=== PATIENT | female | born 1995 | race Caucasian/White ===

== ENCOUNTER 2016-07-20 15:58 | Emergency (ER) | payer MEDICAID ==
[2016-07-20] MEDS ORDERED: SODIUM CHLORIDE 0.9% 1,000 ML IV ONE (16:35)
[2016-07-20] MEDS ORDERED: ONDANSETRON 4 MG/2 ML VIAL IVP STA (16:36)
[2016-07-20] MEDS ORDERED: ONDANSETRON 4 MG/2 ML VIAL ONE (16:43)
== END 2016-07-20 19:08 | disposition home or self-care (01) ==
DX: B34.9 Viral infection, unspecified (principal); E86.0 Dehydration; F17.200 Nicotine dependence, unspecified, uncomplicated

== ENCOUNTER 2016-07-23 21:32 | Emergency (ER) | payer MEDICAID ==
[2016-07-23] MEDS ORDERED: BENZONATATE 100 MG CAPSULE PO STA (22:59)
[2016-07-23] MEDS ORDERED: DEXAMETHASONE 10 MG/ML VIAL PO STA (22:59)
[2016-07-23] MEDS ORDERED: LIDOCAINE VISCOUS 2% 15 ML UDC MM STA ×2 (23:00→23:36)
[2016-07-23] MEDS ORDERED: BENZONATATE 100 MG CAPSULE PO ONE (23:16)
[2016-07-23] MEDS ORDERED: LIDOCAINE VISCOUS 2% 15 ML UDC MM ONE ×2 (23:16→23:38)
[2016-07-23] MEDS ORDERED: DEXAMETHASONE 10 MG/ML VIAL ONE (23:16)
== END 2016-07-23 23:57 | disposition home or self-care (01) ==
DX: J06.9 Acute upper respiratory infection, unspecified (principal); B97.89 Other viral agents as the cause of diseases classified elsewhere; F17.200 Nicotine dependence, unspecified, uncomplicated
CPT/HCPCS: 99283; A9270

== ENCOUNTER 2017-03-12 23:39 | Emergency (ER) | payer MEDICAID ==
--- NOTE | 2017-03-13 01:57 | ED Physician Documentation ---
PD HPI HEADACHE - Stated complaint Stated Complaint: MIGRAINE - Chief complaint Chief Complaint: Neuro - History obtained from History obtained from: Patient - History of Present Illness Timing - onset: How many days ago (4) Timing - duration: Days Timing - details: Gradual onset, Still present, Constant, Waxing and waning Pain level now: 7 Worst headache ever?: No: Worst headache ever? Location: Front, Right, Left Quality: Throbbing Associated symptoms: Nausea. No: Fever, Stiff neck, Vomiting, Weakness, Numbness, Vision changes Improved by: Rest, Dark room, Quiet Worsened by: No: Light, Noise Similar symptoms before: Diagnosis (migraine headache) Recently seen: Not recently seen Review of Systems Constitutional: denies: Fever, Chills, Sweats Eyes: reports: Photophobia. denies: Loss of vision, Decreased vision GI: reports: Nausea. denies: Abdominal Pain, Vomiting Neurologic: reports: Headache. 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 : None HEENT: None Psych: Depression, Anxiety Musculoskeletal: None Derm: None - Past Surgical History Past Surgical History: No - Present Medications Home Medications: Ambulatory Orders Medication Instructions Recorded Confirmed Ondansetron Odt [Zofran Odt] 4 mg TL Q6H PRN #14 tablet 03/13/17 Sumatriptan Succinate [Imitrex] 50 mg PO ONCE PRN #20 tablet 03/13/17 - Allergies Allergies/Adverse Reactions: Allergies Allergy/AdvReac Type Severity Reaction Status Date / Time No Known Drug Allergies Allergy Verified 07/23/16 21:58 - Social History Does the pt smoke?: Yes Smoking Status: Current every day smoker Does the pt drink ETOH?: No Does the pt have substance abuse?: No - Immunizations Immunizations are current?: Yes - POLST Patient has POLST: No PD ED PE NORMAL - Vitals Vital signs reviewed: Yes - General General: Alert and oriented X 3, No acute distress, Well developed/nourished - HEENT HEENT: PERRL, EOMI, Other (mild photophobia) - Neck Neck: Supple, no meningeal sign - Cardiac Cardiac: RRR, No murmur - Respiratory Respiratory: No respiratory distress, Clear bilaterally - Neuro Neuro: Alert and oriented X 3, conference planner 2-12 intact, No motor deficit, No sensory deficit, Normal speech Results - Vitals Vitals: Oxygen O2 Source Room air PD MEDICAL DECISION MAKING - ED course Complexity details: reviewed old records, considered differential, d/w patient Departure - Departure Disposition: Home, Self Care Clinical Impression: Migraine Condition: Good Instructions: ED Headache Migraine Prescriptions: Ondansetron Odt [Zofran Odt] 4 mg TL Q6H PRN #14 tablet PRN Reason: Nausea / Vomiting Sumatriptan Succinate [Imitrex] 50 mg PO ONCE PRN #20 tablet PRN Reason: Headache Discharge Date/Time: 03/13/17 02:28
[2017-03-13] MEDS ORDERED: SUMAtriptan 6 MG/0.5 ML VIAL SUBQ STA (02:12)
[2017-03-13] MEDS ORDERED: ONDANSETRON ODT 4 MG TABLET ONE (02:21)
[2017-03-13] MEDS ORDERED: SUMAtriptan 6 MG/0.5 ML VIAL SUBQ ONE (02:21)
[2017-03-13] MEDS: ONDANSETRON ODT 4 MG TABLET TL STA (02:22)
[2017-03-13 02:29] VITALS: BP 121/87
== END 2017-03-13 02:28 | disposition home or self-care (01) ==
LOC: ED 23:39
DX: G43.909 Migraine, unspecified, not intractable, without status migrainosus (principal); F17.200 Nicotine dependence, unspecified, uncomplicated
CPT/HCPCS: 96372; 99283; Q0162

== ENCOUNTER 2018-05-25 14:16 | Emergency (ER) | payer MEDICAID ==
[2018-05-25 14:25] VITALS: BP 144/101
[2018-05-25] MEDS ORDERED: HYDROcod/ACETAM 5/325 MG TABLET PO STA (14:47)
[2018-05-25] MEDS ORDERED: CLINDAMYCIN 150 MG CAPSULE PO STA (14:47)
--- NOTE | 2018-05-25 14:49 | ED Physician Documentation ---
PD HPI HEENT - Stated complaint Stated Complaint: JAW PX - Chief complaint Chief Complaint: Heent - History obtained from History obtained from: Patient - History of Present Illness Timing - onset: Other (3 days of pain from the left jaw that is worse of the last 2 days. Worse with eating and talking. She is been taking Motrin and Tylenol with some but incomplete relief. No facial swelling or fevers. No URI symptoms. 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 : None HEENT: None Psych: Depression, Anxiety Musculoskeletal: None Derm: None - Past Surgical History Past Surgical History: No - Present Medications Home Medications: Ambulatory Orders Medication Instructions Recorded Confirmed Ondansetron Odt [Zofran Odt] 4 mg TL Q6H PRN #14 tablet 03/13/17 Sumatriptan Succinate [Imitrex] 50 mg PO ONCE PRN #20 tablet 03/13/17 Clindamycin HCl [Clindamycin 300MG 300 mg PO Q6H #40 capsule 05/25/18 CAP] FLUoxetine [PROzac] 05/25/18 05/25/18 Hydrocodone/Acetaminophen 1 - 2 each PO Q6H PRN #14 tablet 05/25/18 [Hydrocodon-Acetaminophen 5-325] Prazosin [Minipress] 05/25/18 - Allergies Allergies/Adverse Reactions: Allergies Allergy/AdvReac Type Severity Reaction Status Date / Time sulfamethoxazole Allergy Rash Verified 05/25/18 14:26 [From Bactrim] trimethoprim [From Bactrim] Allergy Rash Verified 05/25/18 14:26 - Social History Does the pt smoke?: Yes Smoking Status: Current every day smoker Does the pt drink ETOH?: No Does the pt have substance abuse?: No - Immunizations Immunizations are current?: Yes - POLST Patient has POLST: No PD ED PE NORMAL - Vitals Vital signs reviewed: Yes - General General: Alert and oriented X 3, No acute distress - HEENT HEENT: Other (There is a large tender cavity in the last mandibular molar on the left without trismus or sublingual edema. She is tender overlying that on the cheek there is no facial swelling. No tenderness of the TMJ.) - Neck Neck: Supple, no meningeal sign, No bony TTP, No adenopathy - Neuro Neuro: Alert and oriented X 3, Normal speech Results - Vitals Vitals: Vital Signs - 24 hr 05/25/18 14:23 Temperature 36.1 C L Heart Rate 80 Respiratory 18 Rate Blood Pressure 144/101 H O2 Saturation 98 Oxygen O2 Source Room air Departure - Departure Disposition: 01 Home, Self Care Clinical Impression: Pain due to dental caries Condition: Good Record reviewed to determine appropriate education?: Yes Instructions: ED Tooth Pain Prescriptions: Clindamycin HCl [Clindamycin 300MG CAP] 300 mg PO Q6H #40 capsule Hydrocodone/Acetaminophen [Hydrocodon-Acetaminophen 5-325] 1 - 2 each PO Q6H PRN #14 tablet PRN Reason: pain Comments: It is very important that you follow-up with a dentist. When it comes to dental problems like yours, the emergency department can only offer a short-term solution to your long-term problem. A couple of low cost options for dental care include: [facility] in [place], calls [phone] for an appointment Or [facility] in [place], call [phone] for an appointment. Your blood pressure was elevated today on check into the emergency department. This does not mean that you have hypertension, it is a common phenomenon to come to the emergency department and have elevated blood pressure. I recommend that you see your primary care physician within the week to have it rechecked when you are feeling better. Do not drink or drive while taking narcotic pain medication. Note that many narcotic pain relievers also contain Tylenol/acetaminophen. Please ensure that your total dose of acetaminophen from all sources does not exceed 3 g (3000 mg) per day. You may get constipated while on this medication. Take a stool softener such as Colace twice a day while you are on it. Also add an upgk-hth-[id number] laxative such as senna or MiraLAX on any day that you do not have a bowel movement. If you received a narcotic pain medication or sedative while in the emergency department, do not drive for the next 24 hours.
== END 2018-05-25 14:53 | disposition home or self-care (01) ==
LOC: ED 14:16
DX: K02.9 Dental caries, unspecified (principal); F17.200 Nicotine dependence, unspecified, uncomplicated; R03.0 Elevated blood-pressure reading, without diagnosis of hypertension
CPT/HCPCS: 99283; 99284

== ENCOUNTER 2018-10-20 18:29 | Emergency (ER) | payer MEDICAID ==
[2018-10-20 18:37] VITALS: BP 137/81
[2018-10-20] MEDS ORDERED: HYDROcod/ACETAM 5/325 MG TABLET PO STA (18:48)
[2018-10-20] MEDS ORDERED: IBUPROFEN 800 MG TABLET PO STA (18:48)
--- NOTE | 2018-10-20 18:50 | ED Physician Documentation ---
PD HPI LOWER EXT INJURY - Stated complaint Stated Complaint: R ANKLE INJ - Chief complaint Chief Complaint: Ext Problem - History obtained from History obtained from: Patient - History of Present Illness PD HPI LOW EXT INJURY LOCATION: Right (She tripped and injured her right ankle and foot. She can walk and bear weight but pain is moderate to severe. No other injuries. 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 : None HEENT: None Psych: Depression, Anxiety Musculoskeletal: None Derm: None - Past Surgical History Past Surgical History: No - Present Medications Home Medications: Ambulatory Orders Medication Instructions Recorded Confirmed RX: Ondansetron Odt [Zofran Odt] 4 mg TL Q6H PRN #14 tablet 03/13/17 Sumatriptan Succinate [Imitrex] 50 mg PO ONCE PRN #20 tablet 03/13/17 FLUoxetine [PROzac] 05/25/18 05/25/18 Hydrocodone/Acetaminophen 1 - 2 each PO Q6H PRN #14 tablet 05/25/18 [Hydrocodon-Acetaminophen 5-325] RX: Clindamycin HCl [Clindamycin 300 mg PO Q6H #40 capsule 05/25/18 300MG CAP] RX: Prazosin [Minipress] 05/25/18 Hydrocodone/Acetaminophen 1 - 2 each PO Q6H PRN #7 tablet 10/20/18 [Hydrocodon-Acetaminophen 5-325] Ibuprofen [Motrin] 800 mg PO Q8H PRN #30 tablet 10/20/18 - Allergies Allergies/Adverse Reactions: Allergies Allergy/AdvReac Type Severity Reaction Status Date / Time sulfamethoxazole Allergy Rash Verified 10/20/18 18:37 [From Bactrim] trimethoprim [From Bactrim] Allergy Rash Verified 10/20/18 18:37 - Social History Does the pt smoke?: Yes Smoking Status: Current every day smoker Does the pt drink ETOH?: No Does the pt have substance abuse?: No - Immunizations Immunizations are current?: Yes - POLST Patient has POLST: No PD ED PE NORMAL - Vitals Vital signs reviewed: Yes - General General: Alert and oriented X 3, No acute distress - Extremities Extremities: No calf tenderness / cord, Other (No tenderness over the proximal fibula on the right. She is mildly tender over both malleoli but more so the ATFL and less so the fifth proximal metatarsal on the right. In fact she is kind of tender all over. There is no deformity.) - Neuro Neuro: Alert and oriented X 3, Normal speech Results - Vitals Vitals: Vital Signs - 24 hr 10/20/18 18:35 Temperature 36.6 C Heart Rate 99 Respiratory 18 Rate Blood Pressure 137/81 H O2 Saturation 98 Oxygen O2 Source Room air - Rads (name of study) XRs R ankle and foot Radiology: EMP read contemporaneously (normal) Departure - Departure Disposition: 01 Home, Self Care Clinical Impression: Right ankle sprain, Right foot sprain Condition: Good Record reviewed to determine appropriate education?: Yes Instructions: ED Sprain Ankle W X Ray Prescriptions: Hydrocodone/Acetaminophen [Hydrocodon-Acetaminophen 5-325] 1 - 2 each PO Q6H PRN #7 tablet PRN Reason: pain Ibuprofen [Motrin] 800 mg PO Q8H PRN #30 tablet PRN Reason: PAIN &/OR FEVER Comments: Recheck with your doctor in a week if not better, return for new or worsening symptoms. Discharge Date/Time: 10/20/18 19:29
--- NOTE | 2018-10-20 19:31 | XRAY Report ---
Reason: ankle./foot inj Procedure Date: 10/20/2018 Accession Number: [id number] / [id number] Procedure: XR - Ankle 3 View RT CPT Code: FULL RESULT: EXAM: RIGHT ANKLE RADIOGRAPHY EXAM DATE: 10/20/2018 07:07 PM. CLINICAL HISTORY: Fall. Injury. Pain. COMPARISON: None. TECHNIQUE: 3 views. FINDINGS: Bones: Normal. No fractures or bone lesions. Joints: Normal. No effusion. No subluxations. The ankle mortise is normally aligned. Soft Tissues: Unremarkable. IMPRESSION: Normal ankle radiography. [facility]
--- NOTE | 2018-10-20 19:32 | XRAY Report ---
Reason: ankle./foot inj Procedure Date: 10/20/2018 Accession Number: [id number] / [id number] Procedure: XR - Foot 3 View RT CPT Code: FULL RESULT: EXAM: RIGHT FOOT RADIOGRAPHY EXAM DATE: 10/20/2018 07:07 PM. CLINICAL HISTORY: Fall. Injury. Pain. COMPARISON: None. TECHNIQUE: 3 views. FINDINGS: Bones: Normal. No fractures or bone lesions. Joints: Normal. No subluxations. Soft Tissues: Unremarkable. IMPRESSION: Normal foot radiography. [facility]
== END 2018-10-20 19:29 | disposition home or self-care (01) ==
LOC: ED 18:29
DX: S93.401A Sprain of unspecified ligament of right ankle, initial encounter (principal); S93.601A Unspecified sprain of right foot, initial encounter; W01.0XXA Fall on same level from slipping, tripping and stumbling without subsequent striking against object, initial encounter; F17.200 Nicotine dependence, unspecified, uncomplicated
CPT/HCPCS: 73610; 73630; 99283; A9270

== ENCOUNTER 2018-11-26 18:54 | Emergency (ER) | payer MEDICAID ==
[2018-11-26 19:09] VITALS: BP 126/89
[2018-11-26] MEDS ORDERED: LIDOCAINE VISCOUS 2% 15 ML UDC MM STA (19:20)
[2018-11-26] MEDS ORDERED: HYDROcod/ACET 5/325 Prepack 4 PO STA (19:20)
[2018-11-26] MEDS ORDERED: CLINDAMYCIN 150 MG CAPSULE PO STA (19:20)
--- NOTE | 2018-11-26 19:22 | ED Physician Documentation ---
PD HPI HEENT FB - Chief complaint Chief Complaint: Heent - History obtained from History obtained from: Patient - History of Present Illness Timing - onset: Today (23-year-old woman has pain from a cavity for the last week on the right mandible. 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 HEENT: None Psych: Depression, Anxiety, Panic attacks, Post traumatic stress disorder Musculoskeletal: None Derm: None - Past Surgical History Past Surgical History: No - Present Medications Home Medications: Ambulatory Orders Medication Instructions Recorded Confirmed Ondansetron Odt [Zofran Odt] 4 mg TL Q6H PRN #14 tablet 03/13/17 Sumatriptan Succinate [Imitrex] 50 mg PO ONCE PRN #20 tablet 03/13/17 Clindamycin HCl [Clindamycin 300MG 300 mg PO Q6H #40 capsule 05/25/18 CAP] FLUoxetine [PROzac] 05/25/18 05/25/18 Hydrocodone/Acetaminophen 1 - 2 each PO Q6H PRN #14 tablet 05/25/18 [Hydrocodon-Acetaminophen 5-325] Prazosin [Minipress] 05/25/18 Hydrocodone/Acetaminophen 1 - 2 each PO Q6H PRN #7 tablet 10/20/18 [Hydrocodon-Acetaminophen 5-325] Ibuprofen [Motrin] 800 mg PO Q8H PRN #30 tablet 10/20/18 Clindamycin HCl [Clindamycin 300MG 300 mg PO Q6H #40 capsule 11/26/18 CAP] Hydrocodone/Acetaminophen 1 - 2 each PO Q6H PRN #14 tablet 11/26/18 [Hydrocodon-Acetaminophen 5-325] - Allergies Allergies/Adverse Reactions: Allergies Allergy/AdvReac Type Severity Reaction Status Date / Time sulfamethoxazole Allergy Rash Verified 10/20/18 18:37 [From Bactrim] trimethoprim [From Bactrim] Allergy Rash Verified 10/20/18 18:37 - Social History Does the pt smoke?: Yes Smoking Status: Current every day smoker Does the pt drink ETOH?: No Does the pt have substance abuse?: No - Immunizations Immunizations are current?: Yes - POLST Patient has POLST: No PD ED PE NORMAL - Vitals Vital signs reviewed: Yes - General General: Alert and oriented X 3, No acute distress - HEENT HEENT: Other (She has a lot of cavities. The tooth in question is a right mandibular molar with a cavity in it that is tender. No sublingual edema, facial swelling, trismus.) - Neck Neck: Supple, no meningeal sign, No bony TTP - Neuro Neuro: Alert and oriented X 3, Normal speech Results - Vitals Vitals: Vital Signs - 24 hr 11/26/18 19:06 Temperature 36.5 C Heart Rate 90 Respiratory 16 Rate Blood Pressure 126/89 H O2 Saturation 100 Oxygen O2 Source Room air Departure - Departure Disposition: 01 Home, Self Care Clinical Impression: Pain due to dental caries Condition: Good Record reviewed to determine appropriate education?: Yes Instructions: ED Tooth Pain Prescriptions: Clindamycin HCl [Clindamycin 300MG CAP] 300 mg PO Q6H #40 capsule Hydrocodone/Acetaminophen [Hydrocodon-Acetaminophen 5-325] 1 - 2 each PO Q6H PRN #14 tablet PRN Reason: pain
== END 2018-11-26 19:37 | disposition home or self-care (01) ==
LOC: ED 18:54
DX: K02.9 Dental caries, unspecified (principal); F17.200 Nicotine dependence, unspecified, uncomplicated
CPT/HCPCS: 99283; A9270

== ENCOUNTER 2019-01-29 10:58 | Emergency (ER) | payer MEDICAID ==
--- NOTE | 2019-01-29 12:25 | ED Physician Documentation ---
History of Present Illness - Stated complaint Stated Complaint: TOOTH PAIN - Chief complaint Chief Complaint: Heent - History obtained from History obtained from: Patient - History of Present Illness Timing: How many days ago (several) Pain level max: 8 Pain level now: 8 - Additonal information Additional information: R lower molar pain. worse with temperatures. Better with rest. Motrin and tylenol without relief. Sees [facility] for dentistry. 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 : None HEENT: None Psych: Depression, Anxiety, Panic attacks, Post traumatic stress disorder Musculoskeletal: None Derm: None - Past Surgical History Past Surgical History: No - Present Medications Home Medications: Ambulatory Orders Medication Instructions Recorded Confirmed Ondansetron Odt [Zofran Odt] 4 mg TL Q6H PRN #14 tablet 03/13/17 Sumatriptan Succinate [Imitrex] 50 mg PO ONCE PRN #20 tablet 03/13/17 Clindamycin HCl [Clindamycin 300MG 300 mg PO Q6H #40 capsule 05/25/18 CAP] FLUoxetine [PROzac] 05/25/18 05/25/18 Hydrocodone/Acetaminophen 1 - 2 each PO Q6H PRN #14 tablet 05/25/18 [Hydrocodon-Acetaminophen 5-325] Prazosin [Minipress] 05/25/18 Hydrocodone/Acetaminophen 1 - 2 each PO Q6H PRN #7 tablet 10/20/18 [Hydrocodon-Acetaminophen 5-325] Ibuprofen [Motrin] 800 mg PO Q8H PRN #30 tablet 10/20/18 Clindamycin HCl [Clindamycin 300MG 300 mg PO Q6H #40 capsule 11/26/18 CAP] Hydrocodone/Acetaminophen 1 - 2 each PO Q6H PRN #14 tablet 11/26/18 [Hydrocodon-Acetaminophen 5-325] Clindamycin HCl [Clindamycin 300MG 300 mg PO Q6H #40 capsule 01/29/19 CAP] Hydrocodone/Acetaminophen 1 - 2 each PO Q6H PRN #14 tablet 01/29/19 [Hydrocodon-Acetaminophen 5-325] - Allergies Allergies/Adverse Reactions: Allergies Allergy/AdvReac Type Severity Reaction Status Date / Time sulfamethoxazole Allergy Rash Verified 10/20/18 18:37 [From Bactrim] trimethoprim [From Bactrim] Allergy Rash Verified 01/29/19 11:08 - Social History Does the pt smoke?: Yes Smoking Status: Current every day smoker Does the pt drink ETOH?: No Does the pt have substance abuse?: No - Immunizations Immunizations are current?: Yes - POLST Patient has POLST: No PD ED PE NORMAL - Vitals Vital signs reviewed: Yes - General General: Alert and oriented X 3, No acute distress - HEENT HEENT: Moist mucous membranes, Other (right lower molar - visible caries. no gingival swelling. tooth is tender. Normal phonation. no trismus. ) - Neck Neck: Supple, no meningeal sign - Cardiac Cardiac: RRR, Strong equal pulses - Respiratory Respiratory: No respiratory distress, Clear bilaterally - Abdomen Abdomen: Soft, Non tender, Non distended - Derm Derm: Warm and dry - Neuro Neuro: Alert and oriented X 3 - Psych Psych: Normal mood, Normal affect Results - Vitals Vitals: Vital Signs - 24 hr 01/29/19 11:06 Temperature 36 C L Heart Rate 89 Respiratory 20 Rate Blood Pressure 130/86 H O2 Saturation 98 Oxygen O2 Source Room air PD MEDICAL DECISION MAKING - ED course Complexity details: reviewed old records, considered differential, d/w patient ED course: 23-year-old female with dental caries. Will place on antibiotics and pain medication for home. She states that she will follow-up with her dentist ubaldo carrera. She states that the office was closed today. No sublingual swelling. Normal phonation. No trismus. No facial swelling. No drainable abscess. Patient counseled regarding signs and symptoms for which I believe and urgent re-evaluation would be necessary. Patient with good understanding of and agreement to plan and is comfortable going home at this time This document was made in part using voice recognition software. While efforts are made to proofread this document, sound alike and grammatical errors may occur. Departure - Departure Disposition: 01 Home, Self Care Clinical Impression: Dental caries Condition: Good Instructions: ED Tooth Pain, ED Cavity Dental Follow-Up: [facility] [Provider Group] - Within 3 Days Prescriptions: Clindamycin HCl [Clindamycin 300MG CAP] 300 mg PO Q6H #40 capsule Hydrocodone/Acetaminophen [Hydrocodon-Acetaminophen 5-325] 1 - 2 each PO Q6H PRN #14 tablet PRN Reason: pain Comments: Return if you worsen. Take all antibiotics until gone. Return for fevers, facial swelling or other new or worsening symptoms. Follow up with your dentist for further care this week. Do not drink alcohol or drive while on narcotic pain medicine. Note that many narcotic pain relievers also contain tylenol/acetaminophen. Please ensure that your total dose of acetaminophen from all sources does not exceed 3 grams (3000mg) per day. You may constipated on this medication, take a stool softener such as "Colace" twice a day while you are on it. Also recommend a vzgg-yjg-wxlbxrl laxative such as senna or MiraLAX any day that you do not have a bowel movement. If you received narcotic pain medication in the emergency department, do not drive or operate machinery for the next 24 hours.
[2019-01-29 12:37] VITALS: BP 126/74
== END 2019-01-29 12:33 | disposition home or self-care (01) ==
LOC: ED 10:58
DX: K02.9 Dental caries, unspecified (principal); F17.200 Nicotine dependence, unspecified, uncomplicated
CPT/HCPCS: 99282; 99284

== ENCOUNTER 2019-07-15 16:25 | Outpatient (CLI) | payer MEDICAID ==
--- NOTE | 2019-07-16 08:30 | Ultrasound Report ---
Reason: SUPER OF NORMAL Procedure Date: 07/15/2019 Accession Number: [id number] / [id number] Procedure: US - OB First Trimester CPT Code: Final Report FULL RESULT: EXAM: FIRST TRIMESTER OBSTETRIC ULTRASOUND (Less than 11 weeks) EXAM DATE: 07/15/2019 04:40 PM. CLINICAL HISTORY: Supervision of normal , first trimester. LMP: Unknown. COMPARISONS: None. TECHNIQUE: Transabdominal and transvaginal ultrasound examination with static image documentation. CLINICAL DATES: ASSESSMENT: Gestational Sac: Single intrauterine. Mean gestational sac diameter: 10 mm = 5 weeks 5 days. Embryo: Not seen on current exam, likely due to early gestational age. Other: No perigestational fluid collection demonstrated. MATERNAL STRUCTURES: Uterus: Anteverted. Unremarkable. Cervix: Closed. Right Ovary/Adnexa: The ovary measures 1.8 x 2.4 x 2.3 cm, volume 5 cc. Subcentimeter follicles. Left Ovary/Adnexa: The ovary measures 4.3 x 2.4 x 2.7 cm, volume 150 cc. 2.4 x 1.8 x 2.0 cm cyst, compatible with a corpus luteum cyst. Free Fluid: None. Other: None. IMPRESSION: 1. Intrauterine gestational sac indicated, with estimated gestational age of 5 weeks 5 days. 2. No embryo seen on today's study, thought likely due to early gestational age. Suggest short-term ultrasound followup to confirm embryo. [facility]
== END 2019-07-15 16:26 | disposition home or self-care (01) ==
LOC: DI 16:25
PROVIDERS: ATTEND Nurse Practitioner Obstetrics & Gynecology
DX: Z34.91 Encounter for supervision of normal pregnancy, unspecified, first trimester (principal)
CPT/HCPCS: 76801; 76817

== ENCOUNTER 2019-07-17 14:45 | Outpatient (CLI) | payer MEDICAID ==
[2019-07-18 21:55] LABS: TRICHOMONAS VAGINALIS DNA NEGATIVE (NEGATIVE)
== END 2019-07-17 23:59 | disposition home or self-care (01) ==
LOC: LAB.R 14:45
PROVIDERS: ATTEND Nurse Practitioner Obstetrics & Gynecology
DX: Z11.3 Encounter for screening for infections with a predominantly sexual mode of transmission (principal)
CPT/HCPCS: 87491; 87591; 87661

== ENCOUNTER 2019-10-06 18:58 | Outpatient (CLI) | payer MEDICAID ==
--- NOTE | 2019-10-06 22:18 | XRAY Report ---
Reason: LEFT KNEE PAIN Procedure Date: 10/06/2019 Accession Number: [id number] / [id number] Procedure: XR - Knee 3 View LT CPT Code: Final Report FULL RESULT: EXAM: LEFT KNEE RADIOGRAPHY EXAM DATE: 10/06/2019 07:21 PM. CLINICAL HISTORY: LEFT KNEE PAIN. COMPARISON: None. TECHNIQUE: 3 views. FINDINGS: Bones: Normal. No fractures or bone lesions. Joints: Normal. No effusion. No subluxations. Soft Tissues: Normal. No soft tissue swelling. IMPRESSION: Normal knee radiography. [facility]
== END 2019-10-06 18:59 | disposition home or self-care (01) ==
LOC: DI 18:58
PROVIDERS: ATTEND Family Medicine
DX: M25.562 Pain in left knee (principal)

== ENCOUNTER 2021-03-01 19:18 | Emergency (ER) | payer MEDICAID ==
[2021-03-01] MEDS ORDERED: HYDROcod/ACET 5/325 Prepack 4 PO STA (19:32)
[2021-03-01] MEDS ORDERED: BENZONATATE 100 MG CAPSULE PO STA (19:32)
[2021-03-01] MEDS ORDERED: HYDROcod/ACETAM 5/325 MG TABLET PO STA (19:32)
--- NOTE | 2021-03-01 19:33 | ED Physician Documentation ---
PD HPI FEVER - Stated complaint Stated Complaint: SOA, C+ - History obtained from History obtained from: Patient - Additional information Additional information: 25-year-old woman with history of asthma is symptomatic for 8 days with Covid. Started out as just a cold, now more of a productive cough. Body aches are severe and she is still running fevers. She has not been immunized against Covid. 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 : None HEENT: None Psych: Depression, Anxiety, Panic attacks, Post traumatic stress disorder Musculoskeletal: None Derm: None - Past Surgical History Past Surgical History: No - Present Medications Home Medications: Ambulatory Orders Medication Instructions Recorded Confirmed Ondansetron Odt [Zofran Odt] 4 mg TL Q6H PRN #14 tablet 03/13/17 Sumatriptan Succinate [Imitrex] 50 mg PO ONCE PRN #20 tablet 03/13/17 Clindamycin HCl [Clindamycin 300MG 300 mg PO Q6H #40 capsule 05/25/18 CAP] FLUoxetine [PROzac] 05/25/18 05/25/18 Hydrocodone/Acetaminophen 1 - 2 each PO Q6H PRN #14 tablet 05/25/18 [Hydrocodon-Acetaminophen 5-325] Prazosin [Minipress] 05/25/18 Hydrocodone/Acetaminophen 1 - 2 each PO Q6H PRN #7 tablet 10/20/18 [Hydrocodon-Acetaminophen 5-325] Ibuprofen [Motrin] 800 mg PO Q8H PRN #30 tablet 10/20/18 Clindamycin HCl [Clindamycin 300MG 300 mg PO Q6H #40 capsule 11/26/18 CAP] Hydrocodone/Acetaminophen 1 - 2 each PO Q6H PRN #14 tablet 11/26/18 [Hydrocodon-Acetaminophen 5-325] Clindamycin HCl [Clindamycin 300MG 300 mg PO Q6H #40 capsule 01/29/19 CAP] Hydrocodone/Acetaminophen 1 - 2 each PO Q6H PRN #14 tablet 01/29/19 [Hydrocodon-Acetaminophen 5-325] Benzonatate [Tessalon] 200 mg PO QID PRN #20 cap 03/01/21 HYDROcod/ACETAM 5/325 [[place] 5/325] 1 - 2 tab PO Q6H PRN #15 tablet 03/01/21 Ibuprofen [Motrin] 800 mg PO Q8H PRN #14 tablet 03/01/21 - Allergies Allergies/Adverse Reactions: Allergies Allergy/AdvReac Type Severity Reaction Status Date / Time sulfamethoxazole Allergy Rash Verified 03/01/21 19:47 [From Bactrim] trimethoprim [From Bactrim] Allergy Rash Verified 03/01/21 19:47 - Social History Does the pt smoke?: Yes Smoking Status: Current every day smoker Does the pt drink ETOH?: No Does the pt have substance abuse?: No - Immunizations Immunizations are current?: Yes - POLST Patient has POLST: No PD ED PE NORMAL - Vitals Vital signs reviewed: Yes - General General: Alert and oriented X 3, No acute distress (Except for moderately frequent coughing) - Neck Neck: Supple, no meningeal sign, No bony TTP - Cardiac Cardiac: RRR, No murmur - Respiratory Respiratory: No respiratory distress, Clear bilaterally - Abdomen Abdomen: Non tender - Derm Derm: No rash - Neuro Neuro: Alert and oriented X 3, Normal speech Results - Vitals Vitals: Vital Signs - 24 hr 03/01/21 19:47 Temperature 38.5 C H Heart Rate 105 H Respiratory 25 H Rate Blood Pressure 100/71 O2 Saturation 96 Oxygen O2 Source Room air PD MEDICAL DECISION MAKING - ED course ED course: Antibody therapy is considered, that said it can only be administered when the pharmacist is in house and they are not. There is also a shortage. Otherwise she appears well with reassuring vital signs. I am prescribing a short course of short-acting opioid pain medication for this patient. 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 I have discussed that the opioids are for short term therapy only, and will not be refilled from the ED. Departure - Departure Disposition: 01 Home, Self Care Clinical Impression: COVID-19 Condition: Good Record reviewed to determine appropriate education?: Yes Instructions: ED Viral Syndrome Prescriptions: Ibuprofen [Motrin] 800 mg PO Q8H PRN #14 tablet PRN Reason: PAIN &/OR FEVER HYDROcod/ACETAM 5/325 [[place] 5/325] 1 - 2 tab PO Q6H PRN #15 tablet PRN Reason: Pain Benzonatate [Tessalon] 200 mg PO QID PRN #20 cap PRN Reason: Cough Comments: Prescription sent electronically to [facility] in [place]. Please refer to CDC.gov for length of quarantine guidelines. Return for new or worsening symptoms. I am prescribing a short course of narcotic pain medication for you. These are potentially dangerous and addictive medications that should be used carefully. These medications may constipate you. Take an [id number] stool softener (docusate) twice daily with plenty of water while taking these medications. If you go 24 hours without a bowel movement, take [id number] miralax, per package instructions. Do not drink or drive while taking these medications. If you received narcotic or sedating medications while in the emergency department, do not drive for 24 hours. Store this medication in a safe, secure place and out of reach of children. It is a violation of federal law to give or sell this medication to another person or to use in a manner other than prescribed. The ED will not refill narcotic prescriptions, including prescriptions lost or stolen. To dispose of unwanted medications: 1. [facility] at [address] in [place] has a medication drop box. They accept prescription medications (in pill form) Tuesday through Tuesday 9:00 a.m. to 5:00 p.m. 2. [facility] [employer] accepts prescription medications (in pill form only) for disposal year round. Call for more information. 3. Contact the [facility] for the next [facility] sponsored prescription drug collection event. , [phone], or [phone]; Note that many narcotic pain relievers also contain Tylenol/acetaminophen. Please ensure that your total dose of acetaminophen from all sources does not exceed 3 g (3000 mg) per day.
[2021-03-01 20:07] VITALS: BP 101/69
== END 2021-03-01 20:06 | disposition home or self-care (01) ==
LOC: ED 19:18
DX: U07.1 COVID-19 (principal); F17.200 Nicotine dependence, unspecified, uncomplicated
CPT/HCPCS: 99283; A9270

== ENCOUNTER 2022-02-01 08:00 | Outpatient (CLI) | payer MEDICAID ==
--- NOTE | 2022-02-02 14:32 | XRAY Report ---
PROCEDURE: Ankle 3 View RT INDICATIONS: R ANKLE PX TECHNIQUE: 3 views of the ankle were acquired. COMPARISON: None FINDINGS: Bones: No fractures or dislocations. Ankle mortise is normally aligned. No suspicious bony lesions . Soft tissues: No tibiotalar joint effusion. Achilles tendon appears normal. IMPRESSION: No ankle fracture or dislocation. Ankle mortise is congruent. No gross soft tissue abnor malities. Reviewed by: Scot Collado MD on 02/02/2022 2:30 PM PDT Approved by: Scot Collado MD on 02/02/2022 2:30 PM PDT Station ID: [id number]
== END 2022-02-01 23:59 | disposition home or self-care (01) ==
LOC: DI.N 08:00
PROVIDERS: ATTEND Registered Nurse
DX: M25.571 Pain in right ankle and joints of right foot (principal)

== ENCOUNTER 2022-10-24 08:50 | Emergency (ER) | payer MEDICAID ==
[2022-10-24 09:10] LABS: RAPID STREP SCREEN Negative (Negative)
[2022-10-24] MEDS ORDERED: DEXAMETHASONE 10 MG/ML VIAL IM STA (10:51)
[2022-10-24] MEDS ORDERED: KETOROLAC 60 MG/2 ML VIAL IM STA (10:52)
--- NOTE | 2022-10-24 10:55 | ED Physician Documentation ---
History of Present Illness - Stated complaint Stated Complaint: SORE THROAT - Chief complaint Chief Complaint: Heent - History obtained from History obtained from: Patient - Additonal information Additional information: The patient comes to the emergency department with chief complaint of sore throat for the last 3 days. She states that when she woke up this morning, she realized that her uvula was swollen and it felt like every time she laid back, but it was sitting in her throat and making her feel like gagging. She states she was afraid she might choke on it and decided to come here. The patient has been running fevers up to 103 at home. She denies any cough or rhinorrhea. No vomiting. Her child was just sick with something similar and got better on his own. 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 : None HEENT: None Psych: Depression, Anxiety, Panic attacks, Post traumatic stress disorder Musculoskeletal: None Derm: None - Past Surgical History Past Surgical History: No - Present Medications Home Medications: Ambulatory Orders Medication Instructions Recorded Confirmed Albuterol Sulfate [Proair 90 mcg IH PRN PRN 10/24/22 10/24/22 Respiclick] predniSONE [Deltasone] 60 mg PO DAILY 5 Days #15 tablet 10/24/22 - Allergies Allergies/Adverse Reactions: Allergies Allergy/AdvReac Type Severity Reaction Status Date / Time sulfamethoxazole Allergy Rash Verified 10/24/22 08:52 [From Bactrim] trimethoprim [From Bactrim] Allergy Rash Verified 10/24/22 08:52 - Social History Does the pt smoke?: Yes Smoking Status: Current every day smoker Does the pt drink ETOH?: No Does the pt have substance abuse?: No - Immunizations Immunizations are current?: Yes - POLST Patient has POLST: No PD ED PE NORMAL - Vitals Vital signs reviewed: Yes - General General: Alert and oriented X 3, No acute distress, Well developed/nourished - HEENT HEENT: Atraumatic, PERRL, EOMI, Moist mucous membranes, Other (Mild uvular edema with slightly erythematous, 3+ tonsils. Single white patch on right tonsil. Throat symmetrical.) - Neck Neck: Supple, no meningeal sign, No adenopathy - Cardiac Cardiac: RRR, No murmur, Strong equal pulses - Respiratory Respiratory: No respiratory distress, Clear bilaterally - Abdomen Abdomen: Soft, Non tender, Non distended - Derm Derm: Normal color, Warm and dry, No rash - Extremities Extremities: No deformity - Neuro Neuro: Alert and oriented X 3 - Psych Psych: Normal mood, Normal affect Results - Vitals Vitals: Vital Signs - 24 hr 10/24/22 08:52 Temperature 36.2 C L Heart Rate 96 Respiratory 20 Rate Blood Pressure 128/80 O2 Saturation 97 Oxygen O2 Source Room air - Labs Labs: Laboratory Tests 10/24/22 08:55 Group A Strep Rapid Negative PD Medical Decision Making - ED course Complexity details: reviewed results, re-evaluated patient, considered differential, d/w patient ED course: The patient was worked up with a strep test, which was negative. She was treated with Toradol and Decadron in the ED. I discussed with her that while the rapid strep is negative, there still will be a throat culture done on the swab that we will call her. I have discussed with the patient that it is also very well could be a viral process and that this could also cause a painful throat. We have discussed symptomatic management at home, as well as the usual indications for return. Departure - Departure Disposition: 01 Home, Self Care Clinical Impression: Uvular edema Pharyngitis Qualifiers: Pharyngitis/tonsillitis etiology: unspecified etiology Qualified Code(s): J02.9 - Acute pharyngitis, unspecified Condition: Stable Instructions: ED Pharyngitis Viral Prescriptions: predniSONE [Deltasone] 60 mg PO DAILY 5 Days #15 tablet Comments: Your rapid strep test is negative. Most likely, your symptoms are caused by one of the many viruses that are going around right now and causing sore throats. However, a throat culture will be performed off of your Swab and comes back positive, we will call you at home and send in an antibiotic prescription for you. For now, please take the steroid that has been prescribed. You should also take Tylenol and ibuprofen to help with the symptoms. For your swollen uvula, this will not cause you to choke but can be uncomfortable because it stimulates your gag reflex. You may drink ice water to help with some of the swelling. This will go away on its own. Your prescription has been electronically transmitted to [facility] in [place].
[2022-10-24 11:20] VITALS: BP 121/84
== END 2022-10-24 11:19 | disposition home or self-care (01) ==
LOC: ED 08:50
DX: K13.79 Other lesions of oral mucosa (principal); J02.9 Acute pharyngitis, unspecified; F17.200 Nicotine dependence, unspecified, uncomplicated
CPT/HCPCS: 87070; 87430; 96372; 99283

== ENCOUNTER 2024-01-06 22:05 | Emergency (ER) | payer MEDICAID ==
--- NOTE | 2024-01-06 22:20 | ED Physician Documentation ---
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 : None HEENT: None Psych: Depression, Anxiety, Panic attacks, Post traumatic stress disorder Musculoskeletal: None Derm: None - Past Surgical History Past Surgical History: No - Present Medications Home Medications: Ambulatory Orders Medication Instructions Recorded Confirmed Albuterol Sulfate [Proair 90 mcg IH PRN PRN 10/24/22 10/24/22 Respiclick] predniSONE [Deltasone] 60 mg PO DAILY 5 Days #15 tablet 10/24/22 Albuterol 2.5 mg INH Q4H PRN #30 ml 01/06/24 Albuterol Sulf [Ventolin Hfa 2 - 3 puffs INH QID PRN #1 each 01/06/24 Inhaler] Amoxicillin 500 mg PO TID #15 cap 01/06/24 Benzonatate [Tessalon] 100 mg PO TID PRN #20 cap 01/06/24 Fluticasone Propion/Salmeterol 1 inh IH BID 30 Days #12 gm 01/06/24 [Fluticasone-Salmeterol 115-21] dexAMETHasone [Decadron] 4 mg PO DAILY 7 Days #7 tablet 01/06/24 - Allergies Allergies/Adverse Reactions: Allergies Allergy/AdvReac Type Severity Reaction Status Date / Time sulfamethoxazole Allergy Rash Verified 01/06/24 22:08 [From Bactrim] trimethoprim [From Bactrim] Allergy Rash Verified 01/06/24 22:08 - Social History Does the pt smoke?: Yes Smoking Status: Current every day smoker Does the pt drink ETOH?: No Does the pt have substance abuse?: No - Immunizations Immunizations are current?: Yes - POLST Patient has POLST: No Results - Vitals Vitals: Oxygen O2 Source Room air PD Medical Decision Making - ED course Complexity details: reviewed results (chest xray), re-evaluated patient (negative for pneumonia nor PTX. ), considered differential (has had cough and aches for 1-2 weeks, but worse the past couple of days, with wheezing, cough, and back pain. Back pain with coughing and deep breathing. can get xray to ensur e no PTX, effusion nor pneumonia. Otherwise treat as asthma exac. Given duration and now worse, could be secondary bronchiti), d/w patient Departure - Departure Disposition: 01 Home, Self Care Clinical Impression: Acute asthma exacerbation, Cough, Bronchitis with asthma, acute, Muscle strain of chest wall Condition: Stable Record reviewed to determine appropriate education?: Yes Instructions: ED Upper Resp Infec Abx Tx, ED Bronchitis Asthmatic Prescriptions: Albuterol 2.5 mg INH Q4H PRN #30 ml PRN Reason: Wheezing Amoxicillin 500 mg PO TID #15 cap dexAMETHasone [Decadron] 4 mg PO DAILY 7 Days #7 tablet Fluticasone Propion/Salmeterol [Fluticasone-Salmeterol 115-21] 1 inh IH BID 30 Days #12 gm Benzonatate [Tessalon] 100 mg PO TID PRN #20 cap PRN Reason: Cough Albuterol Sulf [Ventolin Hfa Inhaler] 2 - 3 puffs INH QID PRN #1 each PRN Reason: Shortness Of Air/Wheezing Comments: Use the albuterol 4 times daily regularly for the next week or so and extra times if needed. I wrote medications for your nebulizer at home as well as a inhaler to have with you portably. Your chest x-ray appears clear without any signs of pneumonia, fluid around the lungs, collapsed lung and I do not see any broken ribs. Presume you have a muscle strain through the intercostal muscles (the muscles between the ribs) with your coughing. Given the duration and increase of it along with productive sputum, concern would be for a bronchitis infection (again no pneumonia on x-ray) and would treat with some antibiotics. For the asthma exacerbation, we would typically add oral steroids for the next week followed then by inhaled steroids as a maintenance over the next month or so. I wrote prescriptions for these. Add benzonatate/Tessalon if needed for cough. Tylenol every 4-6 hours if needed for pains. Amoxicillin antibiotic for concern of bacterial infection of the bronchitis. Recheck if not improving well over the next several days and resolved by 4 to 6 days. I sent your prescriptions to preferred pharmacy. Follow-up with your primary care subsequently for ongoing treatment of your asthma etc. Forms: PCP List Discharge Date/Time: 01/06/24 23:47
[2024-01-06] MEDS: AMOXICILLIN 250 MG CAPSULE PO STA (23:11)
[2024-01-06] MEDS: BENZONATATE 100 MG CAPSULE PO STA (23:11)
[2024-01-06] MEDS: dexAMETHasone 4 MG TABLET PO STA (23:11)
[2024-01-06] MEDS: IPRATROPIUM/ALBUTEROL 3 ML NEB INH STA (23:20)
[2024-01-06 23:26] VITALS: BP 138/88; O2SAT 93
--- NOTE | 2024-01-06 23:29 | XRAY Report ---
PROCEDURE: Chest 2V INDICATIONS: cough, dyspnea, left rib pain with cough TECHNIQUE: 2 views of the chest were acquired. COMPARISON: None. FINDINGS: Surgical changes and devices: None. Lungs and pleura: No dense consolidation or pleural effusion. No pleural effusions. Mediastinum: Normal heart size Bones and chest wall: No displaced osseous finding. IMPRESSION: No acute radiographic abnormality. Reviewed by: Angel Jolley MD on 01/06/2024 11:28 PM PDT Approved by: Angel Jolley MD on 01/06/2024 11:28 PM PDT Station ID: [id number]
[2024-01-06] MEDS: HYDROcod/ACETAM 5/325 MG TABLET PO STA (23:44)
== END 2024-01-06 23:47 | disposition home or self-care (01) ==
LOC: ED 22:05
DX: S29.011A Strain of muscle and tendon of front wall of thorax, initial encounter (principal); X58.XXXA Exposure to other specified factors, initial encounter; J45.901 Unspecified asthma with (acute) exacerbation; F17.200 Nicotine dependence, unspecified, uncomplicated
CPT/HCPCS: 71046; 94640; 94664; 99283; A9270; J8540